=== PATIENT | female | born 1975 | race Hispanic/Latino ===

== ENCOUNTER 2017-01-18 13:48 | Emergency (ER) | payer BC ==
[2017-01-18] MEDS ORDERED: FLEXERIL PO ONE (14:21)
[2017-01-18] MEDS ORDERED: TORADOL IM ONE (14:21)
--- NOTE | 2017-01-18 14:29 | Emergency Department Report ---
ED Back Pain/Injury HPI - General Stated Complaint: LOWER BACK PAIN Time Seen by Provider: 01/18/17 14:14 Source: patient Mode of arrival: Ambulatory Limitations: No Limitations - History of Present Illness Initial Comments: "I missed the chair and fell on butt 1 week ago" Complaint: back injury Onset/Timin -: week(s) Similar Symptoms Previously: No Place: street Radiation: none Severity: moderate Severity scale (0 -10): 4 Quality: sharp, aching Consistency: constant Worsens With: none Context: turning/twisting, bending, fall Associated Symptoms: denies: weakness, numbness, difficulty walking, difficulty urinating, incontinence, fever/chills, constipation, headaches, abdominal pain, loss of appetite, malaise, nausea/vomiting, rash, shortness of breath, syncope Treatments Prior to Arrival: NSAIDS - Related Data Allergies Allergy/AdvReac Type Severity Reaction Status Date / Time No Known Allergies Allergy Unverified 01/18/17 14:46 ED Review of Systems ROS: Stated complaint: LOWER BACK PAIN Other details as noted in HPI Constitutional: denies: chills, fever Eyes: denies: eye pain, eye discharge, vision change ENT: denies: ear pain, throat pain Respiratory: denies: cough, shortness of breath, wheezing Cardiovascular: denies: chest pain, palpitations Endocrine: no symptoms reported Gastrointestinal: denies: abdominal pain, nausea, diarrhea Genitourinary: denies: urgency, dysuria, discharge Musculoskeletal: back pain Skin: denies: rash, lesions Neurological: denies: headache, weakness, paresthesias Psychiatric: denies: anxiety, depression Hematological/Lymphatic: denies: easy bleeding, easy bruising ED Past Medical Hx - Social History Smoking Status: Never Smoker ED Physical Exam - General General appearance: alert, in no apparent distress - Head Head exam: Present: atraumatic, normocephalic - Eye Eye exam: Present: normal appearance, PERRL, EOMI Pupils: Present: normal accommodation - ENT ENT exam: Present: mucous membranes moist - Neck Neck exam: Present: normal inspection, full ROM. Absent: tenderness, lymphadenopathy, thyromegaly - Respiratory Respiratory exam: Present: normal lung sounds bilaterally. Absent: respiratory distress, wheezes, stridor, chest wall tenderness, accessory muscle use - Cardiovascular Cardiovascular Exam: Present: regular rate, normal rhythm, normal heart sounds. Absent: systolic murmur, diastolic murmur, rubs, gallop - GI/Abdominal GI/Abdominal exam: Present: soft, normal bowel sounds - Rectal Rectal exam: Present: deferred - Extremities Exam Extremities exam: Present: normal inspection, full ROM, normal capillary refill. Absent: tenderness, pedal edema, joint swelling - Back Exam Back exam: Present: normal inspection, tenderness, CVA tenderness (R), CVA tenderness (L), muscle spasm, paraspinal tenderness. Absent: vertebral tenderness, rash noted - Expanded Back Exam Expanded Back exam: Present: intact bulbocavernosus reflex. Absent: saddle anesthesia Back exam: Sciatic Notch Tenderness: Left, Right, Positive Straight Leg Raise: Left, Right - Neurological Exam Neurological exam: Present: alert, oriented X3, CN II-XII intact, reflexes normal. Absent: abnormal gait, motor sensory deficit - Expanded Neurological Exam Expanded Patient oriented to: Present: person, place, time Speech: Present: fluid speech Cranial nerves: EOM's Intact: Normal, Gag Reflex: Normal, Facial Sensation: Normal Cerebellar function: Finger to Nose: Normal, Heel to Monique: Normal, Romberg: Normal Sensory exam: Upper Extremity Light Touch: Normal, Upper Extremity Pin Prick: Normal, Upper Extremity Temperature: Normal, UE 2 Point Discrimination: Normal, Lower Extremity Light Touch: Normal, Lower Extremity Pin Prick: Normal, Lower Extremity Temperature: Normal, LE 2 Point Discrimination: Normal Motor strength exam: RUE: 5, LUE: 5, RLE: 5, LLE: 5 DTR: bicep (R): 2+, bicep (L): 2+, tricep (R): 2+, tricep (L): 2+, knee (R): 2+ , knee (L): 0, ankle (R): 2+, ankle (L): 2+ Best Eye Response (Fatimah): (4) open spontaneously Best Motor Response (Spreckels): (6) obeys commands Best Verbal Response (Spreckels): (5) oriented Fatimah Total: 15 - Psychiatric Psychiatric exam: Present: normal affect, normal mood - Skin Skin exam: Present: warm, dry, intact, normal color. Absent: rash ED Course Vital Signs 01/18/17 14:47 Temperature 98.2 F Pulse Rate 82 Respiratory 18 Rate Blood Pressure 141/82 O2 Sat by Pulse 98 Oximetry Critical care attestation.: If time is entered above; I have spent that time in minutes in the direct care of this critically ill patient, excluding procedure time. ED Disposition Clinical Impression: Back strain Disposition: ELOPED Is pt being admited?: No Does the pt Need Aspirin: No Condition: Good Referrals: PRIMARY CARE, [Primary Care Provider] - 3-5 Days Time of Disposition: 15:07
[2017-01-18 14:52] VITALS: BP 141/82
== END 2017-01-18 15:01 | disposition left against medical advice (07) ==
LOC: ED 13:48
DX: S39.012A Strain of muscle, fascia and tendon of lower back, initial encounter (principal); W07.XXXA Fall from chair, initial encounter; Y93.89 Activity, other specified; Y99.8 Other external cause status; Y92.89 Other specified places as the place of occurrence of the external cause
CPT/HCPCS: 96372; 99282; J1885

== ENCOUNTER 2017-11-26 08:04 | Outpatient (CLI) | payer BC | END 2017-11-26 08:05 | disposition home or self-care (01) | LOC: VAS 08:04 | PROVIDERS: ATTEND Orthopaedic Surgery | DX: M79.662 Pain in left lower leg (principal); M79.89 Other specified soft tissue disorders; R60.0 Localized edema ==

== ENCOUNTER 2017-12-05 12:06 | Emergency (ER) | payer BC ==
[2017-12-05 12:16] VITALS: BP 127/56
[2017-12-05] MEDS ORDERED: TORADOL IM ONE (13:08)
--- NOTE | 2017-12-05 13:22 | Emergency Department Report ---
Anabelle Doc - Documentation Documentation: She is a 42-year-old female who is presenting with right foot pain. Patient states she's had some swelling to her left lower extremity for approximately 2 months that is in the process of being evaluated. Patient is on the walking with a cane and has navicular. Patient stepped wrong off of a curb yesterday and now has injured her right foot. Patient states she went to an urgent care which she believes that the nurse practitioner read her x-ray. Patient is questioning whether she was probably diagnosed. Patient is employed here. X-ray will be performed here we'll have our radiologist weigh in on whether there is a fracture or not. Patient will be reassessment SCOT.
--- NOTE | 2017-12-05 13:42 | Emergency Department Report ---
ED Extremity Problem HPI - General Chief complaint: Extremity Injury, Lower Stated complaint: RIGHT LEG PAIN Time Seen by Provider: 12/05/17 13:01 Source: patient Mode of arrival: Wheelchair Limitations: No Limitations - History of Present Illness Initial comments: She is a 42-year-old female who is presenting with right foot pain. Patient states she's had some swelling to her left lower extremity for approximately 2 months that is in the process of being evaluated. Patient is on the walking with a cane due to left leg pain and swelling. Patient says she has been to 2 different orthopedic doctors and she is now with Dr. Roni Velez MD. patient has had left leg pain and swelling for 2 months with unsteady gait and she is currently being worked up and she is supposed to make an appointment with vascular doctor for evaluation. She says she had Doppler study done to her left lower extremity and it didn't show any clots. Denies any shortness of breath or chest pain. She denies any problems with her heart. Patient stepped wrong off of a curb yesterday and now has injured her right foot. Patient states she went to an urgent care which she believes that the nurse practitioner read her x-ray. Patient states that she usually takes tramadol but she has ran out. She is very tearful. Pain is worse or walk-in better at rest. She is ambulating with a cane. Patient has an appointment with Dr. Cavazos on 12/12/2017 for primary care evaluation. Complaint: extremity pain, extremity swelling Onset/Timin -: days(s) Location: right, lower extremity History of Same: No -: No myalgia, Yes arthralgia, No fever, No associated dyspnea, No associated chest pain Radiation: none Severity scale (0 -10): 10 Quality: aching, sharp Consistency: constant Improves with: immobilization, rest Worsens with: weight bearing, walking, palpation Associated Symptoms: arthralgias. denies: chest pain, shortness of breath, fever, myalgias, rash - Related Data Previous Rx's Medication Instructions Recorded Last Taken Type Ibuprofen [Motrin] 800 mg PO Q8HR PRN #20 tablet 12/05/17 Unknown Rx traMADol [Ultram] 50 mg PO Q12H PRN 30 Days #60 05/09/18 Unknown Rx tablet Allergies Allergy/AdvReac Type Severity Reaction Status Date / Time No Known Allergies Allergy Unverified 01/18/17 14:46 ED Review of Systems ROS: Stated complaint: RIGHT LEG PAIN Other details as noted in HPI Comment: All other systems reviewed and negative Constitutional: no symptoms reported. denies: chills, fever Respiratory: denies: cough, orthopnea, shortness of breath, SOB with exertion, SOB at rest, stridor, wheezing Cardiovascular: denies: chest pain, palpitations, dyspnea on exertion, edema, syncope, paroxysmal nocturnal dyspnea Gastrointestinal: denies: abdominal pain, nausea, vomiting, diarrhea Genitourinary: denies: urgency, dysuria, discharge Musculoskeletal: joint swelling, arthralgia. denies: back pain, myalgia Skin: denies: rash, lesions Neurological: abnormal gait. denies: headache, weakness, numbness, paresthesias , vertigo ED Past Medical Hx - Past Medical History Previous Medical History?: No - Surgical History Past Surgical History?: Yes Hx Cholecystectomy: Yes Additional Surgical History: gastirc BYPASS/ C SECTIONS X2 - Family History Family history: hypertension - Social History Smoking Status: Never Smoker Substance Use Type: None - Medications Home Medications: Home Medications Medication Instructions Recorded Confirmed Last Taken Type Ibuprofen [Motrin] 800 mg PO Q8HR PRN #20 tablet 12/05/17 Unknown Rx traMADol [Ultram] 50 mg PO Q12H PRN 30 Days #60 12/05/17 Unknown Rx tablet ED Physical Exam - General Limitations: No Limitations General appearance: alert, in no apparent distress - Head Head exam: Present: atraumatic, normocephalic - Eye Eye exam: Present: normal appearance, PERRL, EOMI Pupils: Present: normal accommodation - ENT ENT exam: Present: normal exam, normal orophraynx, mucous membranes moist - Neck Neck exam: Present: normal inspection, full ROM. Absent: tenderness, lymphadenopathy - Respiratory Respiratory exam: Present: normal lung sounds bilaterally. Absent: respiratory distress, wheezes, rales, rhonchi, stridor, chest wall tenderness, accessory muscle use, decreased breath sounds, prolonged expiratory - Cardiovascular Cardiovascular Exam: Present: regular rate, normal rhythm. Absent: systolic murmur, diastolic murmur - Extremities Exam Extremities exam: Present: tenderness, normal capillary refill, pedal edema, joint swelling, other (no clubbing or cyanosis. Positive pulses all extremities and no neurovascular compromise. Patient with swelling to left leg which is been ongoing for 2 months and she's been followed and worked up. Negative Homans signs. No laceration, contusion or abrasions. +2 pulses to all extremities. She has full extension and flexion in both knees. No joint effusion.). Absent: normal inspection, full ROM, calf tenderness - Expanded Lower Extremity Exam Right Hip exam: Present: normal inspection, full ROM, pelvic stability. Absent: tenderness, swelling, abrasion, laceration, ecchymosis, deformity, crepidus, dislocation, erythema, external rotation, internal rotation, shortening Upper Leg exam: Present: normal inspection, full ROM. Absent: tenderness, swelling, abrasion, laceration, ecchymosis, deformity, crepidus, dislocation, erythema Knee exam: Present: normal inspection, full ROM, full knee extension. Absent: tenderness, swelling, abrasion, laceration, ecchymosis, deformity, crepidus, dislocation, erythema, effusion, pain w/ pronation/supination, posterior draw sign, pain/laxity with valgus, pain/laxity with varus Lower Leg exam: Present: normal inspection, full ROM. Absent: tenderness, swelling, abrasion, laceration, ecchymosis, deformity, crepidus, dislocation, erythema, palpable cord, Jose's sign Ankle exam: Present: normal inspection, full ROM. Absent: tenderness, swelling , abrasion, laceration, ecchymosis, deformity, crepidus, dislocation, erythema Foot/Toe exam: Present: tenderness (dorsal aspect of right foot), swelling ( right foot dorsally). Absent: normal inspection, full ROM, abrasion, laceration , ecchymosis, deformity, crepidus, dislocation, amputation, puncture wound, foreign body, calcaneal tenderness, tenderness at base of 5th metatarsal, nail avulsion, subungual hematoma Neuro vascular tendon exam: Present: no vascular compromise, significant pain with passive ROM of distal joint. Absent: pulse deficit, abnormal cap refill, motor deficit, sensory deficit, tendon deficit, extremity cold to touch, pallor , abnormal 2-point discrimination, decreased fine/light touch, foot drop, peroneal nerve deficit Gait: Positive: antalgic - Back Exam Back exam: Present: normal inspection - Neurological Exam Neurological exam: Present: alert, oriented X3, normal gait - Psychiatric Psychiatric exam: Present: normal affect, normal mood - Skin Skin exam: Present: warm, dry, intact, normal color. Absent: rash ED Course Vital Signs 12/05/17 12:10 Temperature 98.6 F Pulse Rate 65 Blood Pressure 127/56 O2 Sat by Pulse 98 Oximetry - Reevaluation(s) Reevaluation #1: 12/05/17 16:08 Patient received 60 mg of Toradol IM in the emergency room along with tramadol 50 mg by mouth for musculoskeletal pain. Procedure note for details and splint - Orthopedic Splinting/Casting Injury #1 Side: right Lower Extremity Injury Location: foot Lower Extremity Immobilizer: Mohinder wrap Additional Comments: Patient with her own postop shoe. She has good color, sensation and temperature to extremities. She has good movement but pain with range of motion to the right foot. ED Medical Decision Making - Radiology Data Radiology results: report reviewed X-ray of right foot reveals patient with no evidence of acute fracture. She has some osteopenia. No lytic lesion or soft tissue swelling. - Medical Decision Making ED course: Patient here with 2 months of left lower extremity swelling and she says she's had ultrasound of her lower extremity and it did not show any clots. Patient says that she's been going to various orthopedic doctor and they have not been able to tell what's wrong with her and she has made an appointment of vascular doctor and also she has an appointment with Dr. Quezada next week Sunday. Patient says that they have not found out what's wrong with her and they have not done any blood tests and she is very frustrated but yesterday she injured her right foot in that she's having pain and some swelling. X-ray report shows that the patient had no fracture or dislocation. There are no mention for soft tissue swelling and patient with osteopenia. Patient was given Toradol 60 mg IM and Ultram 50 mg by mouth emergency room. This helped with her pain. Discharged home with prescription for Motrin and tramadol and to follow-up with orthopedic doctor and also Dr. Yoselin Perez primary care physician who will be able to do inferior lab work and manage her care and refer her as appropriate. Diagnostic/labs: Patient had x-ray of right foot reveals just feels mild osteopenia but no acute fracture dislocation. Previous Doppler study of lower extremity, left revealed patient negative for DVT or SVT. Labs were done today. Patient will be seen primary care physician next week and they'll be joint. Diagnosis: Right foot sprain, arthralgia right foot, osteopenia right foot Medication in emergency room: Toradol 60 mg IM and Ultram 50 mg by mouth and patient voiced relief for pain. Prescription: Tramadol and Motrin Procedure: Mohinder wrap to right foot and patient had postop shoe which she placed after mohinder wrap.. She has good color, sensation and movement in temperature to toes of right foot status post Mohinder wrap Follow-up: Patient instructed to follow up with Dr. Quezada to establish primary care and he will be able to manage her medical problem and refer her as necessary. I also referred her back to Roni Velez MD who is her orthopedic doctor to follow-up for chronic pain. Rice therapy explained to her. Patient voiced understanding of need to follow-up for further evaluation of chronic pain. Critical care attestation.: If time is entered above; I have spent that time in minutes in the direct care of this critically ill patient, excluding procedure time. ED Disposition Clinical Impression: Arthralgia of right foot Right foot sprain Qualifiers: Encounter type: initial encounter Qualified Code(s): S93.601A - Unspecified sprain of right foot, initial encounter Disposition: DC- TO HOME OR SELFCARE Is pt being admited?: No Does the pt Need Aspirin: No Condition: Stable Instructions: Foot Sprain (ED), Arthralgia (ED), RICE Therapy (ED) Additional Instructions: Take Ultram as prescribed for pain but please do not drive or operate heavy machinery while taking this medication as it causes drowsiness Take Motrin for inflammation. Make sure you take this medication with food as it causes nausea. These follow-up with multiple specialists to include primary care physician as scheduled. Follow discharge instructions on arise therapy. Prescriptions: Ibuprofen [Motrin] 800 mg PO Q8HR PRN #20 tablet PRN Reason: foot sprain traMADol [Ultram] 50 mg PO Q12H PRN 30 Days #60 tablet PRN Reason: Pain Referrals: HERBERT BERGERON MD [Staff Physician] - 12/12/17 RONI VELEZ MD [Staff Physician] - 12/07/17 Forms: Work/School Release Form(ED)
--- NOTE | 2017-12-05 14:10 | XRay Report ---
Right foot 3 views: History: Injury. Findings: There is osteopenia. No previous lytic lesion no soft tissue calcification no evidence acute fracture. Impression: No evidence of acute fracture.
[2017-12-05] MEDS ORDERED: ULTRAM PO ONE (16:08)
== END 2017-12-05 16:35 | disposition home or self-care (01) ==
LOC: ED 12:06
DX: S93.601A Unspecified sprain of right foot, initial encounter (principal); X58.XXXA Exposure to other specified factors, initial encounter; Y93.89 Activity, other specified; Y92.89 Other specified places as the place of occurrence of the external cause; Y99.8 Other external cause status
CPT/HCPCS: 73630; 96372; 99283; J1885

== ENCOUNTER 2018-10-07 09:11 | Outpatient (CLI) | payer BC ==
[2018-10-07 10:13] LABS: Hematocrit 40.2 % (30.3-42.9); Hemoglobin 13.5 gm/dl (10.1-14.3); Mean Corpuscular HGB Conc 34 % (30-34); Mean Corpuscular Volume 89 fl (79-97); Platelet Count 221 K/mm3 (140-440); Red Cell Distribution Width 14.5 % (13.2-15.2)
[2018-10-07 10:27] LABS: Alanine Aminotransferase 11 units/L (7-56); Albumin 3.8 g/dL (3.9-5); BUN/Creatinine Ratio 20; Blood Urea Nitrogen 8 mg/dL (7-17); Calcium 8.5 mg/dL (8.4-10.2); Chol/HDL Ratio 2.54 %; HDL Cholesterol 53 mg/dL (40-59); Hemolysis Index 2; LDL Cholesterol,Direct 80 mg/dL (50-130)
== END 2018-10-07 09:12 | disposition home or self-care (01) ==
LOC: LAB 09:11
PROVIDERS: ATTEND Internal Medicine
DX: Z00.01 Encounter for general adult medical examination with abnormal findings (principal); I66.01 Occlusion and stenosis of right middle cerebral artery; D51.0 Vitamin B12 deficiency anemia due to intrinsic factor deficiency; F34.1 Dysthymic disorder; Z90.49 Acquired absence of other specified parts of digestive tract
CPT/HCPCS: 36415; 80053; 80061; 82306; 82607; 83036; 84443; 85027

== ENCOUNTER 2021-03-04 10:15 | Outpatient (CLI) | payer BC ==
[2021-03-04 10:50] LABS: Basophils % (Auto) 0.7 % (0.0-1.8); Eosinophils # (Auto) 0.1 K/mm3 (0.0-0.4); Eosinophils % (Auto) 1.9 % (0.0-4.3); Hematocrit 36.2 % (30.3-42.9); Lymphocytes # (Auto) 1.5 K/mm3 (1.2-5.4); Mean Corpuscular HGB Conc 33 % (30-34); Mean Corpuscular Volume 85 fl (79-97); Monocytes # (Auto) 0.4 K/mm3 (0.0-0.8); Monocytes % (Auto) 7.2 % (0.0-7.3); Platelet Count 251 K/mm3 (140-440); Red Blood Count 4.27 M/mm3 (3.65-5.03); Red Cell Distribution Width 15.5 % (13.2-15.2)
[2021-03-04 11:00] LABS: INR 0.96 (0.87-1.13); Partial Thromboplastin Time 28.4 Sec. (24.2-36.6)
[2021-03-04 11:12] LABS: Alanine Aminotransferase 10 units/L (7-56); Albumin 3.7 g/dL (3.9-5); Blood Urea Nitrogen 12 mg/dL (7-17); Calcium 8.6 mg/dL (8.4-10.2); Chol/HDL Ratio 2.21 %; HDL Cholesterol 61 mg/dL (40-59); Hemolysis Index 3; LDL Cholesterol,Direct 72 mg/dL (50-130)
[2021-03-04 11:15] LABS: BUN/Creatinine Ratio 24
== END 2021-03-04 10:16 | disposition home or self-care (01) ==
LOC: LAB 10:15
PROVIDERS: ATTEND Internal Medicine
DX: Z13.220 Encounter for screening for lipoid disorders (principal); Z00.00 Encounter for general adult medical examination without abnormal findings; Z13.1 Encounter for screening for diabetes mellitus; Z13.29 Encounter for screening for other suspected endocrine disorder; Z13.0 Encounter for screening for diseases of the blood and blood-forming organs and certain disorders involving the immune mechanism; E55.9 Vitamin D deficiency, unspecified; E16.2 Hypoglycemia, unspecified
CPT/HCPCS: 36415; 80053; 80061; 83036; 84443; 85025; 85610; 85730

== ENCOUNTER 2021-12-08 08:22 | Outpatient (CLI) | payer BC ==
[2021-12-08 09:04] LABS: Hematocrit 37.1 % (30.3-42.9); Hemoglobin 11.8 gm/dl (10.1-14.3); Mean Corpuscular HGB Conc 32 % (30-34); Mean Corpuscular Volume 81 fl (79-97); Platelet Count 241 K/mm3 (140-440); Red Blood Count 4.55 M/mm3 (3.65-5.03); Red Cell Distribution Width 16.6 % (13.2-15.2)
[2021-12-08 09:23] LABS: Alanine Aminotransferase 10 units/L (7-56); Albumin 3.9 g/dL (3.9-5); Blood Urea Nitrogen 7 mg/dL (7-17); Calcium 8.8 mg/dL (8.4-10.2); Chol/HDL Ratio 2.61 %; HDL Cholesterol 63 mg/dL (40-59); Hemolysis Index 3; LDL Cholesterol,Direct 86 mg/dL (50-130)
[2021-12-08 09:25] LABS: BUN/Creatinine Ratio 10
--- NOTE | 2021-12-09 11:46 | Mammography Report ---
DIGITAL SCREENING MAMMOGRAM WITH CAD, 12/08/2021 CLINICAL INFORMATION / INDICATION: Routine screening mammography. Z12.31 TECHNIQUE: Digital bilateral 2D mammography was obtained in the craniocaudal and mediolateral obliqu e projections. This examination was interpreted with the benefit of Computer-Aided Detection analysis . COMPARISON: Baseline. FINDINGS: Breast Density: The breasts are almost entirely fatty. No dominant mass, suspicious calcifications, or architectural distortion in either breast. IMPRESSION: No mammographic evidence of malignancy. Follow up recommendation: Routine yearly screening mammogram. BI-RADS Category 1: NEGATIVE A "normal" or negative report should not discourage follow up or biopsy of a clinically significant f inding. A written summary of these findings will be mailed to the patient. The patient will be entered into a mammography reporting system which will generate a reminder letter for the patient's next appointmen t at the appropriate interval. The [employer] recommends yearly mammograms starting at age 40 and continuing as l augusto as a woman is in good health. Breast MRI is recommended for women with an approximate 20-25% or greater lifetime risk of breast cancer, including women with a strong family history of breast or ova jamari cancer or who have been treated for Hodgkin's disease. Signer Name: Moe Bermeo MD Signed: 12/09/2021 11:41 AM Workstation Name: [id number]
[2021-12-12 09:16] LABS: Vitamin D, 25-OH, D2 15 ng/mL
== END 2021-12-08 08:23 | disposition home or self-care (01) ==
LOC: MAMMO 08:22
PROVIDERS: ATTEND Internal Medicine
DX: Z12.31 Encounter for screening mammogram for malignant neoplasm of breast (principal); Z00.00 Encounter for general adult medical examination without abnormal findings; Z11.3 Encounter for screening for infections with a predominantly sexual mode of transmission; E66.01 Morbid (severe) obesity due to excess calories; E55.9 Vitamin D deficiency, unspecified; E16.2 Hypoglycemia, unspecified
CPT/HCPCS: 36415; 77067; 80053; 80061; 82306; 83036; 84443; 85027; 86592; 86689